=== PATIENT | female | born 1985 | race Caucasian/White ===

== ENCOUNTER → 2018-09-28 09:55 | Outpatient (CLI) | payer OTHER, SELFPAY ==
--- NOTE | 2018-09-28 | DI.MG.S_ITS ---
BILATERAL DIGITAL DIAGNOSTIC MAMMOGRAM 3D/2D: 09/28/2018 CLINICAL: Baseline exam. Left breast lump. No prior exams were available for comparison. The tissue of both breasts is extremely dense, which lowers the sensitivity of mammography. No significant masses, calcifications, or other findings are seen in either breast. IMPRESSION: INCOMPLETE: NEEDS ADDITIONAL IMAGING EVALUATION There is no mammographic abnormality seen in the left breast to correspond with the palpable abnormality at 11 o'clock, however, targeted ultrasound of the left breast is recommended and will be performed immediately following this exam. This exam was interpreted at Station ID: [id number]. NOTE: For mammograms, a report in lay terms will be sent to the patient. Approximately 15% of breast malignancies will not be visualized mammographically. In the management of a palpable breast mass, a negative mammogram must not discourage biopsy of a clinically suspicious lesion. Electronically Signed By: Sierra Lance M.D. lk/:09/28/2018 10:32:15 letter sent: Additional Imaging Needed ACR BI-RADS Category 0: Incomplete [id number]
--- NOTE | 2018-09-28 | DI.US.S_ITS ---
ULTRASOUND OF LEFT BREAST: 09/28/2018 CLINICAL: Palpable left breast lump. Comparison is made to exam dated: 09/28/2018 [facility]. Real-time ultrasound of the left breast was performed on the areas of interest. Byrd scale images of the real-time examination were reviewed. IMPRESSION: INCOMPLETE: NEEDS ADDITIONAL IMAGING EVALUATION There is no mammographic or sonographic abnormality seen in the left breast to correspond with the palpable abnormality at 2 o'clock, however, this mass was palpated by the [employer] technician performing the exam. Clinical followup and breast MRI are recommended. This exam was interpreted at Station ID: [id number]. Electronically Signed By: Sierra alcala/:10/01/2018 08:29:20 Entry: - 10/01/2018 08:29:20 letter sent: Need MRI Ultrasound BI-RADS: 0 Indeterminate
== END ==
PROVIDERS: PCP Family Medicine; Visit Provider Family Medicine
DX: R92.8 Other abnormal and inconclusive findings on diagnostic imaging of breast (principal); N63.21 Unspecified lump in the left breast, upper outer quadrant
CPT/HCPCS: 76642; 77066; G0279